=== PATIENT | male | born 1965 | race Caucasian/White ===

== ENCOUNTER 2024-06-02 19:08 | Inpatient (IN) | payer BC, OTHER ==
[~2024-06-02] VITALS: Ht 188 cm; Wt 99.8 kg
[2024-06-02 19:17] VITALS: PULSE 92; RESP 18; TEMP 97.8; O2SAT 97
[2024-06-02] MEDS: HYDROcodone/APAP 5/325 MG 1 TAB TAB PO ONE (19:46)
[2024-06-02] MEDS: NITROGLYCERIN 0.4 MG TAB SL ONE (19:47)
[2024-06-02 19:54] LABS: BASOPHILS % (AUTO) 0.3 % (0.0-2.0); EOSINOPHILS % (AUTO) 0.1 % (0.0-4.0); HEMATOCRIT 49.3 % (36-52); HEMOGLOBIN 16.9 g/dL (12.0-18.0); LYMPHOCYTES # (AUTO) 1.2 K/uL (2.0-11.5); LYMPHOCYTES % (AUTO) 9.2 % (20.5-51.1); MEAN CORPUSCULAR HEMOGLOBIN 30 pg (27-31); MEAN CORPUSCULAR HGB CONC 34 g/dL (33-37); MEAN CORPUSCULAR VOLUME 88.6 fL (80-94); MONOCYTES # (AUTO) 0.7 K/uL (0.8-1.0); MONOCYTES % (AUTO) 5.2 % (1.7-9.3); NEUTROPHILS % (AUTO) 85.2 % (42.2-75.2); PLATELET COUNT (AUTO) 214 K/uL (140-450); RED BLOOD CELL COUNT(AUTO) 5.56 MIL/uL (4.20-6.10); RED CELL DISTRIBUTION WIDTH 13.8 % (11.6-13.7); WHITE BLOOD COUNT (AUTO) 12.9 K/uL (4.8-10.8)
[2024-06-02 20:06] LABS: INR 1.05 (0.8-1.2); PARTIAL THROMBOPLASTIN TIME 24.5 secs (22-35.6)
[2024-06-02 20:20] LABS: D-DIMER < 100 ng/ml (0-400)
[2024-06-02 21:12] LABS: ANION GAP 22.4 (8-16); CARBON DIOXIDE 19.3 mmol/L (21-32); CHLORIDE 98 mmol/L (98-107); POTASSIUM 4.7 mmol/L (3.5-5.1); SODIUM SERUM 135 mmol/L (136-145)
[2024-06-02 21:13] LABS: ALANINE AMINOTRANSFERASE 47 U/L (12-78); ALBUMIN 4.2 g/dL (3.4-5.0); ALKALINE PHOSPHATASE 109 U/L (50-136); ASPARTATE AMINOTRANSFERASE 35 U/L (15-37); CALCIUM 9.9 mg/dL (8.5-10.1); CREATININE 2.4 mg/dL (0.6-1.3); GFR ARICAN-AMERICAN 36 mL/min (>90); GFR NON ARICAN-AMERICAN 30 mL/min (>90); GLUCOSE 116 mg/dL (74-106); LIPASE 73 U/L (16-77); TOTAL BILIRUBIN 1.3 mg/dL (0.0-1.0); TOTAL PROTEIN, SERUM 7.8 g/dL (6.4-8.2); UREA NITROGEN, BLOOD 21 mg/dL (7-18)
[2024-06-02] MEDS ORDERED: HEPARIN PER PHARMACY MC PRN (22:05)
[2024-06-02] MEDS: ASPIRIN 81 MG TAB.CHEW PO ONE (22:24)
[2024-06-02] MEDS ORDERED: MIRT-120 PO (22:28)
[2024-06-02] MEDS ORDERED: LOVA40TA5 PO (22:28)
[2024-06-02] MEDS ORDERED: BUPR100T8 PO (22:28)
[2024-06-02] MEDS ORDERED: MAGNESIUM OXIDE 400 MG TAB PO PRN (22:30)
[2024-06-02] MEDS ORDERED: ONDANSETRON 4 MG/2 ML VIAL IVP PRN ×2 (22:30→22:45)
[2024-06-02] MEDS ORDERED: MORPHINE SULFATE 4 MG/ML SYR IVP PRN (22:30)
[2024-06-02] MEDS ORDERED: HYDROcodone/APAP 5/325 MG 1 TAB TAB PO PRN (22:30)
[2024-06-02] MEDS ORDERED: ACETAMINOPHEN 325 MG TAB PO PRN (22:30)
[2024-06-02] MEDS ORDERED: KCL 20 MEQ IN 100 mL PREMIX 200 ML IV PRN (22:30)
[2024-06-02] MEDS ORDERED: POTASSIUM CHLORIDE 10 MEQ TABER PO PRN ×2 (22:30→22:45)
[2024-06-02 23:17] VITALS: PULSE 88
[2024-06-02 23:30] VITALS: PULSE 84; RESP 18; O2SAT 94
[2024-06-03] VITALS: BP 111/78; PULSE 84; PULSE 88; RESP 18; TEMP 98.6; O2SAT 94
[2024-06-03] MEDS: NACL 0.9% 1,000 ML IV SCH (00:34)
[2024-06-03] MEDS: hePARIN / DEXT 5% PREMIX 250 ML IV SCH (02:10)
[2024-06-03 04:00] VITALS: BP 109/74; PULSE 69; PULSE 74; RESP 18; TEMP 98.1; O2SAT 96
[2024-06-03 08:00] VITALS: BP 123/73; PULSE 69; PULSE 72; PULSE 75; RESP 18; TEMP 98; O2SAT 96
[2024-06-03 09:15] LABS: ALBUMIN 3.8 g/dL (3.4-5.0); CALCIUM 9.2 mg/dL (8.5-10.1); CARBON DIOXIDE 27.6 mmol/L (21-32); CREATININE 1.4 mg/dL (0.6-1.3); POTASSIUM 4.6 mmol/L (3.5-5.1); TOTAL BILIRUBIN 0.8 mg/dL (0.0-1.0); TOTAL PROTEIN, SERUM 6.9 g/dL (6.4-8.2)
[2024-06-03] MEDS: ATORVASTATIN 20 MG TAB PO SCH (11:13)
[2024-06-03 12:00] VITALS: BP 126/76; PULSE 71; PULSE 83; RESP 18; TEMP 98.1; O2SAT 96
[2024-06-03] MEDS ORDERED: HEPARIN PER PHARMACY MC PRN (15:35)
[2024-06-03 16:00] VITALS: BP 104/79; PULSE 74; PULSE 78; RESP 18; TEMP 98.1; O2SAT 95
[2024-06-03 20:00] VITALS: BP 118/81; PULSE 77; PULSE 82; RESP 18; TEMP 97.8; O2SAT 95; O2SAT 96
[2024-06-03] MEDS: METOPROLOL 25 MG TAB PO SCH (21:18)
[2024-06-04] VITALS (7 sets, daily range): BP systolic 105–137; BP diastolic 70–93; PULSE 60–77; RESP 18–20; TEMP 97.1–97.9; O2SAT 96–100
[2024-06-04 07:17] LABS: ALBUMIN 3.3 g/dL (3.4-5.0); ANION GAP 13.1 (8-16); CALCIUM 8.7 mg/dL (8.5-10.1); CARBON DIOXIDE 23.9 mmol/L (21-32); TOTAL BILIRUBIN 0.5 mg/dL (0.0-1.0); TOTAL PROTEIN, SERUM 6.1 g/dL (6.4-8.2)
[2024-06-04] MEDS ORDERED: LOSA-272 PO (10:40)
[2024-06-04] MEDS ORDERED: ATOR20TA40 PO (10:40)
[2024-06-04] MEDS ORDERED: ASPI-1822 PO (10:40)
[2024-06-04] MEDS ORDERED: METO25TA PO (10:40)
[2024-06-05] VITALS: BP 103/68; PULSE 60; RESP 18; TEMP 97.9; O2SAT 98
[2024-06-05 00:23] VITALS: PULSE 62
[2024-06-05 04:00] VITALS: BP 116/82; PULSE 57; RESP 18; TEMP 97.3; O2SAT 97
[2024-06-05 04:01] VITALS: PULSE 60
[2024-06-05 07:19] LABS: ALBUMIN 3.1 g/dL (3.4-5.0); ANION GAP 13.8 (8-16); CALCIUM 8.7 mg/dL (8.5-10.1); CARBON DIOXIDE 22.1 mmol/L (21-32); POTASSIUM 3.9 mmol/L (3.5-5.1); TOTAL BILIRUBIN 0.3 mg/dL (0.0-1.0)
[2024-06-05 08:00] VITALS: BP 132/91; PULSE 61; PULSE 65; RESP 18; TEMP 97.5; O2SAT 97
== END 2024-06-05 09:01 | DRG 282 ==
LOC: MED 19:08 → MTU 22:32 → MED 22:32 → MTU 22:45
PROVIDERS: ADMIT Hospitalist; ATTEND Hospitalist
DX: I21.4 Non-ST elevation (NSTEMI) myocardial infarction (principal); I25.110 Atherosclerotic heart disease of native coronary artery with unstable angina pectoris; F41.9 Anxiety disorder, unspecified; F32.A Depression, unspecified; E78.5 Hyperlipidemia, unspecified; Z79.899 Other long term (current) drug therapy; Z88.8 Allergy status to other drugs, medicaments and biological substances
CPT/HCPCS: 36415; 71045; 80048; 80053; 83690; 84484; 85025; 85379; 85610; 85730; 87081; 93005; 99291; J1644; Q0092